=== PATIENT | female | born 1980 | race Caucasian/White ===

== ENCOUNTER → 2024-05-20 | Outpatient (CLI) | payer OTHER ==
[2024-05-20 15:09] LABS: THYROID STIMULATING HORMONE 4.393 uIU/ML (0.55-4.78)
[2024-05-20 15:11] LABS: FREE T4 1.04 NG/DL (0.89-1.76)
== END ==
LOC: M LAB 13:50
DX: E03.9 Hypothyroidism, unspecified (principal)